=== PATIENT | male | born 2000 | race African-American/Black ===

== ENCOUNTER 2022-06-17 04:41 | Emergency (ER) | payer BC, SELFPAY ==
--- NOTE | ~2022-06-17 | CT_ITS ---
EXAMINATION: CT abdomen pelvis w con DATE: 06/17/2022 05:53 INDICATION: Low abdominal pain. TECHNIQUE: Computed tomography (CT) of the abdomen and pelvis was performed with 100 mL Omnipaque 350 intravenous contrast. Automated exposure control and iterative reconstruction technique were employe d. The dose-length product was 296.47 mGy-cm. COMPARISON: None. FINDINGS: The visualized portions of the lung bases are clear without pneumonia or pleural effusion. The heart size is normal. No pericardial effusion. The liver, gallbladder, spleen, pancreas, and adre nal glands are normal. There are 4 mm and 3 mm stones in right kidney. There is mild right hydronephr osis and hydroureter. There is a 5 mm stone in distal right ureter. There are 2 mm and 3 mm stones in left kidney. There are no dilated loops of bowel. The appendix is normal. There are no pathologicall y enlarged lymph nodes. There is no free intraperitoneal fluid. The bones are unremarkable. IMPRESSION: 1. 5 mm stone in distal right ureter with mild right hydronephrosis and hydroureter. 2. Bilateral nonobstructing kidney stones. Reviewed, dictated and finalized at location A. ING INSPECTOR IMPRESSION: 1. 5 mm stone in distal right ureter with mild right hydronephrosis and hydrour eter. 2. Bilateral nonobstructing kidney stones.
[2022-06-17 04:49] VITALS: BP 151/100; PULSE 53; RESP 18; TEMP 36.6; O2SAT 99
--- NOTE | 2022-06-17 04:58 | ED.ABDPAIN ---
HPI - Abdominal Pain General Chief Complaint: Abdominal Pain Stated Complaint: abd pain Time Seen by Provider: 06/17/22 04:51 History of Present Illness HPI narrative: This is a 22-year-old male who denies past medical history, presenting the emergency department complaining of abdominal pain for the past 2 days. He describes the pain as sharp, 8/10, intermittent, greater on the right side with radiation towards the back. This is associated with intermittent nausea and vomiting twice without blood. He complains of mild constipation but is able to pass gas. He has no other complaints today. Related Data Allergies Allergy/AdvReac Type Severity Reaction Status Date / Time No Known Allergies Allergy Verified 06/17/22 04:53 Review of Systems Review of Systems: CONSTITUTIONAL: Denies fever, chills, or sweats. EYES: Denies visual changes, redness, or discharge. ENT: Denies rhinorrhea, congestion, sore throat, or otalgia. CARDIOVASCULAR: Denies chest pain, palpitations, or edema. RESPIRATORY: Denies cough or dyspnea. GASTROINTESTINAL: Abdominal pain, nausea and vomiting denies diarrhea. GENITOURINARY: Denies dysuria or hematuria. SKIN: Denies rash or itching. MUSCULOSKELETAL: Denies back pain, joint pain, or myalgia. NEUROLOGIC: Denies headache, numbness, dizziness, or weakness. PSYCHIATRIC: Denies anxiety or depression. [facility] Social History Social History (Updated 06/17/22 @ 04:59 by Rambo Atkinson MD) Smoking status: Never smoker Alcohol intake: current Drinks per week: 2 Substance use: current Substance use type: marijuana Exam Narrative: GENERAL: Well-developed, well-nourished, appears tired and slightly uncomfortable HEAD: Normocephalic, atraumatic. EYES: PERRLA and EOMI. ENT: Nares clear, no rhinorrhea or epistaxis. Mucous membranes moist. Oropharynx without tonsillar hypertrophy exudate or other lesions. NECK: Supple. No adenopathy or masses. No carotid bruits or JVD CHEST: Clear to auscultation. No respiratory distress. No wheezes rales or rhonchi HEART: Regular rate and rhythm. No murmur heard. Normal peripheral pulses. ABDOMEN: Soft, tender palpation in the right lower quadrant, Rovsing sign positive, nondistended, normal active bowel sounds. No CVA tenderness EXTREMITIES: Normal range of motion. No edema. SKIN: Warm, dry, no rash. NEURO: No focal deficits. Alert and oriented x3. PSYCH: Normal mood and affect. Course Course Emergency Course: 06:45 - CBC unremarkable. Chemistries demonstrate a glucose of 127 but otherwise unremarkable with a creatinine of 1.2 and BUN of 9. UA demonstrates hematuria with some WBCs but no changes concerning for UTI. Radiology interpretation of CT abdomen/pelvis demonstrates a 5 mm distal right ureteral stone is seen with some hydronephrosis. I did not appreciate any other obvious abnormalities on my review. On reevaluation, the patient states his pain is resolved. Discussed findings and recommendations for pain control, tamsulosin and follow-up with urology. Discussed return emergent precautions including signs/symptoms of sepsis and acute abdomen. The patient voiced understanding and is comfortable with the plan. All questions answered to his satisfaction. Vital Signs Vital signs: Vital Signs Temperature 97.9 F 06/17/22 04:49 Pulse Rate 53 L 06/17/22 04:49 Respiratory Rate 18 06/17/22 04:49 Blood Pressure 151/100 H 06/17/22 04:49 Pulse Oximetry 99 06/17/22 04:49 Oxygen Delivery Room Air 06/17/22 04:49 Temperature 97.9 F 06/17/22 04:49 Pulse Rate 44 L 06/17/22 05:50 Respiratory Rate 14 06/17/22 05:50 Blood Pressure 131/65 06/17/22 05:50 Pulse Oximetry 100 06/17/22 05:50 Oxygen Delivery Room Air 06/17/22 04:49 MDM - Abdominal Pain MDM Narrative Medical decision making narrative: Plan: Labs, imaging, pain control, reassess Differential Diagnosis Differential diagnosis: Likely acute appendicitis, calculus
[2022-06-17 05:03] LABS: Basophils Absolute Auto 0.1 K/mm3 (0.0-0.1); Basophils Percent Auto 0.6 % (0.2-1.2); Eosinophils Absolute Auto 0.1 K/mm3 (0-0.3); Eosinophils Percent Auto 1.1 % (0-4.4); Hematocrit 49.8 % (42.0-52.0); Hemoglobin 16.4 g/dL (14.0-18.0); Immature Granulocyte Absolute 0.03 K/mm3 (0.00-0.031); Immature Granulocyte Percent A 0.3 % (0-0.5); Lymphocytes Absolute Auto 2.77 K/mm3 (0.9-3.2); Lymphocytes Percent Auto 28.5 % (18.3-44.2); Mean Corpuscular HGB Conc 32.9 g/dl (32-36); Mean Corpuscular Hemoglobin 29.4 pg (26-34); Mean Corpuscular Volume 89.4 fl (80-100); Monocytes Absolute Auto 0.6 K/mm3 (0.1-0.6); Monocytes Percent Auto 6.5 % (2.6-8.5); Neutrophils Absolute Auto 6.1 K/mm3 (1.3-6.7); Platelet Count Result 235 k/mm3 (150-375); Red Blood Count 5.57 M/mm3 (4.6-6.20); Red Cell Distribution Width 13.6 % (11.5-14.5); White Blood Count 9.7 K/mm3 (4.5-10.0)
--- NOTE | 2022-06-17 05:09 | PC.NURSE ---
Pt reports lower abdominal pain that started yesterday morning after eating breakfast. Pain described as sharp in nature and rated 10/10. Pain is constant. He cannot identify any aggravating factors. Also c/o nausea and reports two episodes of emesis yesterday. Denies blood in his stool or vomit. Denies pain with urination. Abdomen is soft but tender in RLQ. Bowel sounds present throughout. Denies any past medical history or surgeries. He does not take any prescribe medications.
[2022-06-17 05:15] LABS: Add Urine Microscopic? YES; Appearance Urine Clear (Clear); Bilirubin Urine Negative (Negative); Blood Urine 3+ (Negative); Color Urine Yellow (Yellow); Glucose Urine UA Negative (Negative); Ketones Urine Negative (Negative); Leukocyte Esterase Ur Negative LEU/UL (Negative); Nitrate Urine Negative (Negative); Protein Urine Trace mg/dL (Negative); Specific Grav Ur >= 1.030 (1.001-1.035); Urobilinogen Urine 0.2 mg/dL (<2.0); pH Urine 5.5 (5.0-9.0)
[2022-06-17 05:20] LABS: Bacteria Urine Trace /hpf; Mucus Urine Heavy /lpf; RBC Urine >75 /hpf (0-2)
[2022-06-17 05:28] LABS: Alanine Aminotransferase 19 U/L (6-50); Alkaline Phosphatase 81 U/L (38-126); Anion Gap 7 mmol/L (8-16); Aspartate Amino Transferase 29 U/L (17-59); Bilirubin,Total 0.9 mg/dL (0.2-1.3); Blood Urea Nitrogen 9 mg/dL (9-20); Calcium 9.8 mg/dL (8.4-10.2); Carbon Dioxide 27 mmol/L (22-30); Chloride 107 mmol/L (98-107); Estimated CRCL calculation 85 ml/min; Estimated Glomerular Filt Rate > 60; Glucose 127 mg/dL (65-110); Lipase 122 U/L (23-300); Potassium 3.9 mmol/L (3.4-5.0); Sodium 141 mmol/L (137-145)
[2022-06-17 05:50] VITALS: BP 131/65; PULSE 44; RESP 14; O2SAT 100
== END 2022-06-17 06:52 | disposition home or self-care (01) ==
PROVIDERS: Emergency Provider Preventive Medicine Aerospace Medicine
DX: N13.2 Hydronephrosis with renal and ureteral calculous obstruction (principal); R11.2 Nausea with vomiting, unspecified
CPT/HCPCS: 36415; 74177; 80053; 81001; 83690; 85025; 87086; 96365; 99284; J0131; Q9967

== ENCOUNTER 2022-08-15 07:30 | Emergency (ER) | payer BC, SELFPAY ==
[2022-08-15] VITALS (10 sets, daily range): BP systolic 112–151; BP diastolic 76–92; PULSE 41–101; RESP 13–32; TEMP 36.9; O2SAT 100
--- NOTE | ~2022-08-15 | XR_ITS ---
XR chest 2V DATE: 08/15/2022 09:08 INDICATION: Cough TECHNIQUE: PA and lateral views COMPARISON: None FINDINGS: Normal heart size. No hilar or mediastinal enlargement. The lungs are clear of infiltrate o r consolidation. No pleural effusion or pulmonary vascular congestion or pneumothorax. Mild thoracic scoliosis. IMPRESSION: No active cardiopulmonary disease Reviewed, dictated and finalized at location A. NESS DEVELOPMENT CONSULTANT
--- NOTE | 2022-08-15 07:32 | ECG_ITS ---
Measurements Intervals Sacul Rate: 50 P: 28 SC: 157 QRS: 81 QRSD: 96 T: 64 QT: 407 QTc: 374 Interpretive Statements SINUS BRADYCARDIA VOLTAGE CRITERIA FOR LVH [MEETS CRITERIA IN ONE OF: R(aVL), S(V1), R(V5), R(V5/V6)+S(V1)] EARLY REPOLARIZATION U WAVE PRESENT IN V3; CONSIDER HYPOKALEMIA Epsilon wave noted in V4 through V6 (after the QRS) which can be seen in certain cardiomyopathies. NO PREVIOUS ECG AVAILABLE FOR COMPARISON Electronically Signed On 08-15-2022 8:40:50 POSTDOCTORAL RESEARCH ASSOCIATE by Nereyda Lilly M.D.
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
== END 2022-08-15 09:47 | disposition home or self-care (01) ==
PROVIDERS: Emergency Provider Preventive Medicine Aerospace Medicine
DX: R00.1 Bradycardia, unspecified (principal); J45.909 Unspecified asthma, uncomplicated; R94.31 Abnormal electrocardiogram [ECG] [EKG]
CPT/HCPCS: 71046; 93005; 99283